=== PATIENT | male | born 1995 | race Caucasian/White ===

== ENCOUNTER → 2022-09-28 | Outpatient (CLI) | payer MEDICAID, SELFPAY ==
[2022-09-28 11:47] LABS: Free T3 2.5 pg/mL (2.18-3.98); T4 Free Direct 1.01 ng/dL (0.76-1.46); Thyroid Stim Hormone (TSH) 0.21 uIU/mL (0.358-3.74)
[2022-09-29 14:47] LABS: Thyroid Peroxidase AB 12 IU/mL (0-34)
== END | disposition home or self-care (01) ==
PROVIDERS: PCP Physician Assistant Medical; Referring Provider Internal Medicine Endocrinology, Diabetes & Metabolism; Visit Provider Internal Medicine Endocrinology, Diabetes & Metabolism
DX: R79.89 Other specified abnormal findings of blood chemistry (principal)
CPT/HCPCS: 36415; 84439; 84443; 84481; 86376